=== PATIENT | male | born 1955 | race Caucasian/White ===

== ENCOUNTER → 2016-06-26 | Outpatient (CLI) | payer OTHER | END | disposition home or self-care (01) | LOC: CFH 11:00 | PROVIDERS: ATTEND Internal Medicine Cardiovascular Disease | DX: I08.1 Rheumatic disorders of both mitral and tricuspid valves (principal); I37.1 Nonrheumatic pulmonary valve insufficiency; I10 Essential (primary) hypertension; I48.0 Paroxysmal atrial fibrillation; T78.49XA Other allergy, initial encounter; Z87.891 Personal history of nicotine dependence | CPT/HCPCS: 93306 ==